=== PATIENT | female | born 1985 ===

== ENCOUNTER 2018-04-03 07:57 | Outpatient (CLI) | payer OTHER ==
[~2018-04-03] VITALS: Ht 154.9 cm; Wt 47.7 kg
[2018-04-03 08:13] VITALS: BP 106/55; PULSE 68
[2018-04-03 09:08] VITALS: BP 110/53; PULSE 71; PULSE 79
[2018-04-03 09:56] VITALS: BP 97/54; PULSE 69; TEMP 98.4
[2018-04-03 10:22] LABS: GLUCOSE,CSF 47 mg/dL (40-70); TOTAL PROTEIN,CSF 58 mg/dL (15-45)
[2018-04-03 10:36] LABS: CSF APPEARANCE CLEAR; CSF COLOR COLORLESS; CSF MONONUCLEAR 90 % (70-100); CSF POLYMORPHONUCLEAR 10 % (0-6); CSF RBC 9 /mm3 (0-0)
== END 2018-04-03 10:05 | disposition home or self-care (01) ==
LOC: COL.RAD 07:57
PROVIDERS: Psychiatry & Neurology Neurology
DX: R51 Headache (principal)